=== PATIENT | male | born 1960 | race Caucasian/White ===

== ENCOUNTER 2016-10-26 06:05 | Day surgery (SDC) | payer OTHER ==
--- NOTE | 2016-10-19 09:59 | HP ---
PREOPERATIVE HISTORY AND PHYSICAL: DATE OF ADMISSION: 10/26/16 - [facility] PROVIDER: Abdon Saldivar MD CHIEF COMPLAINT: Right foot pain. HISTORY OF PRESENT ILLNESS: Mr. Cyr is a 56-year-old gentleman who has been followed by Dr. Saldivar for progressively worsening pain at the right first MTP joint. He states that he has had significant stiffness that has gotten worse over several years. 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 He is interested in surgical intervention at this point for correction of the problem. PAST MEDICAL HISTORY: 1. Type 2 diabetes. 2. Hypertension. 3. History of alcohol abuse. PAST SURGICAL HISTORY: Hernia repair. He reports no complication with anesthesia with those procedures. CURRENT MEDICATIONS: 1. Metformin HCL 500 mg p.o. daily. 2. Amlodipine/benazepril hydrochloride 5/20 mg p.o. daily. 3. Aspirin 325 mg one p.o. daily. 4. Zinc 25 mg one p.o. daily. ALLERGIES: LATEX, but no known drug allergies. FAMILY HISTORY: Positive for diabetes, heart disease, and high blood pressure, and stroke. SOCIAL HISTORY: The patient lives alone. 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 He quit smoking 27 years ago. He also quit drinking about 30 years ago. He exercises occasionally. REVIEW OF SYSTEMS: Constitutional: Negative for fevers, chills, night sweats, or recent hospitalization. Eyes: Negative for blurred vision or double vision. Cardiovascular: Positive for heart palpitations and history of a heart murmur. Negative for any chest pain. Respiratory: Negative for shortness of breath or chronic cough. Gastrointestinal: Negative for nausea, vomiting, diarrhea, or constipation. Genitourinary: Negative for nighttime urination or frequency of urination, or urinary tract infection. Musculoskeletal: Negative for recent fracture or chronic back pain. Neurologic: Negative for neuropathy , weakness, dizziness, or lightheadedness. Skin: Negative for rashes, lesions , or lumps. Hematology: Negative for easy bleeding or bruising. Endocrine: Negative for weight loss, weight gain, or fatigue. Allergic: Negative for seasonal allergies or hay fever. Psychiatric: Negative for depression or anxiety. PHYSICAL EXAMINATION GENERAL: He is a well-developed, well-nourished, pleasant male, in no acute distress at rest. He is alert and oriented x3 with appropriate mood and affect. VITAL SIGNS: The patient is 5 feet 8 inches, 190 pounds, blood pressure 130/82 , pulse 68, respirations 16. HEENT: Normocephalic/atraumatic. Hearing and vision are grossly intact. NECK: Trachea is midline. RESPIRATORY: Lungs are clear to auscultation bilaterally. No wheezes, rales, or rhonchi. CARDIOVASCULAR: Regular rate and rhythm. He has a 3/6 holosystolic murmur heard at the apex. Normal S1,S2. ABDOMEN: Soft, nondistended, nontender with normoactive bowel sounds. EXTREMITIES: Exam of the right lower extremity, skin is intact without abrasions or open wounds. There is no edema or ecchymosis. He has some palpable osteophyte formation over the dorsal aspect of the first MTP joint. He has very limited range of motion of the MTP joint as well. He had pain with passive range of motion. Sensation to light touch is intact. He has 2+ dorsalis pedis pulse. 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 IMPRESSION: Right foot hallux rigidus. PLAN: The patient is to undergo right foot first MTP joint fusion by Dr. Saldivar on 10/26/16. The risks, benefits, and postoperative course were discussed with the patient at length and he would like to proceed. A small prescription for oxycodone was sent to his pharmacy for postoperative pain. All of his questions were answered to his full satisfaction. He has understanding to call if he develops any problems or concerns. We will otherwise follow up with the patient in the postoperative phase. SHAGUFTA TAYLOR [id number]/[facility] #: [id number] RACHEL
[~2016-10-26 06:05] MED LIST: Buffered Lidocaine 1% SYR 3ML* 3 ML/SYR SYRINGE INTRADERM ONE; Dexamethasone IV* 4 MG/ML 1 ML (4 MG) IV SLOW PU ONE; Dexamethasone IV* 4 MG/ML 1 ML (4 MG) ONE; Famotidine IV* 10 MG/ML 2 ML (20 mg) IV ONE; Famotidine IV* 10 MG/ML 2 ML (20 mg) ONE; ceFAZolin 2 GM PREMIX (*) 2 GM/50 ML BAG IVPB ONE
[2016-10-26] MEDS ORDERED: HYDROmorphone INJ* 1 MG/ML CARPUJECT SYRINGE ONE (06:50)
[2016-10-26] MEDS ORDERED: fentaNYL* 50 MCG/ML 2 ML VIAL (100 MCG VIAL) ONE ×2 (06:51→08:36)
[2016-10-26] MEDS ORDERED: Lidocaine 2% PF * 5 ML VIAL ONE (06:54)
[2016-10-26] MEDS ORDERED: Propofol* 10 MG/ML 20 ML BTL IV PUSH ONE (06:54)
[2016-10-26] MEDS ORDERED: Midazolam* 1 MG/ML 2 ML VIAL (2 MG) ONE (06:54)
[2016-10-26] MEDS ORDERED: Ondansetron INJ* 2 MG/ML VIAL ONE (06:54)
[2016-10-26] MEDS ORDERED: Ketorolac INJ* 30 MG/ML 1 ML VIAL ONE (06:54)
[2016-10-26] MEDS ORDERED: Bupivacaine 0.5% SDV PF* 30 ML VIAL ONE ×2 (07:15→07:17)
[2016-10-26] MEDS ORDERED: Lidocaine 2% PF* 10 ML AMP ONE (07:15)
[2016-10-26] MEDS ORDERED: Dexmedetomidine* 200 MCG/2 ML 2 ML VIAL ONE (08:08)
[2016-10-26] MEDS ORDERED: PROCHLORPERAZINE INJ 5 MG/ML 2 ML VIAL IV PRN (08:44)
[2016-10-26] MEDS ORDERED: fentaNYL* 50 MCG/ML 2 ML VIAL (100 MCG VIAL) IV PRN (08:44)
[2016-10-26] MEDS ORDERED: DiMENhydriNATE IV* 50 MG/ML VIAL IV PUSH PRN (08:44)
[2016-10-26] MEDS ORDERED: Ondansetron INJ* 2 MG/ML VIAL IV PRN (08:44)
[2016-10-26] MEDS ORDERED: Scopolamine 1.5 mg* PATCH TRANSDERM PRN (08:44)
[2016-10-26 09:36] VITALS: BP 121/68
--- NOTE | 2016-10-26 20:58 | RAD ---
INDICATION: Surgical fusion of the first metatarsal-phalangeal joint. COMPARISON: Comparison is made with a prior x-ray study of the right foot from March 13, 2016. TECHNIQUE: 2.1 seconds of intermittent fluoroscopic guidance were provided and 2 spot films of the right foot centered on the first metatarsal-phalangeal joint were obtained in the operating room. FINDINGS: The films demonstrate a surgical fusion of the first metatarsal-phalangeal joint. There is a metallic plate dorsal to the distal first metatarsal and proximal phalanx transfixed with multiple screws. There is also a surgical screw spanning the metatarsal-phalangeal joint. IMPRESSION: INTRAOPERATIVE CONTROL FILMS. CPT II Codes: 6045F
--- NOTE | 2016-10-27 06:10 | OP ---
DATE OF OPERATION: 10/26/16 - [facility] DATE OF : 64 SURGEON: Abdon Saldivar MD REGULATORY MANAGER: Kandis Man PA-C ANESTHESIOLOGIST: Jakub Elizalde MD ANESTHESIA: General PRE-OP DIAGNOSIS: Right hallux rigidus arthritis. POST-OP DIAGNOSIS: Right hallux rigidus arthritis. OPERATIVE PROCEDURE: Right first MTP joint fusion. DESCRIPTION OF PROCEDURE: The patient was taken to the operating room where longitudinal incision was made over the dorsum of the first MTP joint. We reflected the capsule to allow visualization of the dorsal aspect of the joint. Rongeur and microsagittal saw were used to remove the large periarticular osteophytes. We prepared the joint itself for fusion with a 2.45 power jordy. We then put the toe in a neutral position and pinned it obliquely with a 34 mm _ partially threaded cannulated screw and then fashioned a Y rigid plate for the dorsum of the metatarsophalangeal joint. We then irrigated thoroughly closing the capsule and nylon for the skin and a compression dressing applied. [id number]/[facility] #: [id number] MTDD
[2016-10-29] MEDS ORDERED: Scopolamine PATCH Remove* 1 NOTE MISC PATCH OFF ONE (08:45)
== END 2016-10-26 10:10 | disposition home or self-care (01) ==
LOC: OR 06:05
PROVIDERS: ATTEND Orthopaedic Surgery
DX: M20.21 Hallux rigidus, right foot (principal); M19.071 Primary osteoarthritis, right ankle and foot; E11.9 Type 2 diabetes mellitus without complications; Z79.84 Long term (current) use of oral hypoglycemic drugs; I10 Essential (primary) hypertension; Z87.891 Personal history of nicotine dependence; M19.90 Unspecified osteoarthritis, unspecified site; F41.9 Anxiety disorder, unspecified; Z87.898 Personal history of other specified conditions; Z79.82 Long term (current) use of aspirin
CPT/HCPCS: 76000; C1713; C1776; J0690; J1100; J1170; J1885; J2001; J2250; J2405; J2704; J3010

== ENCOUNTER 2019-02-28 11:48 | Emergency (ER) | payer OTHER ==
[2019-02-28 14:07] LABS: Urine Appearance Cloudy; Urine Bacteria Absent (Absent); Urine Bilirubin Negative (Negative); Urine Blood 1+ (Negative); Urine Color Yellow; Urine Glucose Negative (Negative); Urine Ketones 1+ (Negative); Urine Nitrite Negative (Negative); Urine Protein Negative (Negative); Urine Red Blood Cell 2+(6-10/hpf) (Absent); Urine Specific Gravity 1.026 (1.010-1.030); Urine Urobilinogen Negative (Negative); Urine White Blood Cell 1+(6-10/hpf) (Absent)
[2019-02-28] MEDS ORDERED: Sulfamethox/Trimethoprim DS 800/160* TAB PO ONE (14:38)
--- NOTE | 2019-02-28 14:38 | ED ---
GI/ HPI - HPI Summary HPI Summary: 59-year-old male presents with left groin pain for a day. He states he is not currently having the pain. He states that it radiates into his testicle. Denies any masses. He states that the pain has resolved. He denies any fevers. No dysuria. He admits to urgency and frequency. He states that his PSA was elevated and is waiting to see urology. denies any penile discharge. no diarrhea or constipation. no nausea or vomiting. - History of Current Complaint Chief Complaint: EDUrogenitalProblems Time Seen by Provider: 02/28/19 13:26 Stated Complaint: TESTICULAR TORSION PER PT Pain Intensity: 2 - Allergy/Home Medications Allergies/Adverse Reactions: Allergies Allergy/AdvReac Type Severity Reaction Status Date / Time Pasco And Derivatives Allergy Rash And Verified 02/28/19 14:26 Itching latex AdvReac Rash And Verified 02/28/19 14:26 Itching PMH/Surg Hx/FS Hx/Imm Hx Endocrine/Hematology History: Reports: Hx Diabetes - ON PO MEDS & WATCHES DIET Cardiovascular History: Reports: Hx Hypertension - ON DAILY MEDS, STATES WELL CONTROLLED Sensory History: Reports: Hx Contacts or Glasses - GLASSES Comment Only: 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 [facility] Hx Anesthesia Reactions: No Infectious Disease History: No Infectious Disease History: Denies: Traveled Outside the [place] in Last 30 Days - Family History Known Family History: Positive: Non-Contributory - Social History Alcohol Use: None Alcohol Amount: RECOVERING ALCOHOLIC 20 YRS SOBER Substance Use Type: Reports: None Smoking Status (MU): Former Smoker Type: Cigarettes Amount Used/How Often: 1PPD Length of Time of Smoking/Using Tobacco: 16 YRS Have You Smoked in the Last Year: No Review of Systems Negative: Fever Negative: Chest Pain Negative: Shortness Of Breath Positive: Abdominal Pain All Other Systems Reviewed And Are Negative: Yes Physical Exam Triage Information Reviewed: Yes Vital Signs On Initial Exam: Initial Vitals Temp Pulse Resp BP Pulse Ox 99.2 F 84 16 150/95 96 02/28/19 11:57 02/28/19 11:57 02/28/19 11:57 02/28/19 11:57 02/28/19 11:57 Vital Signs Reviewed: Yes Appearance: Positive: Well-Appearing Skin: Positive: Warm, Dry Head/Face: Positive: Normal Head/Face Inspection Eyes: Positive: Normal, Conjunctiva Clear ENT: Positive: Pharynx normal Respiratory/Lung Sounds: Positive: Clear to Auscultation, Breath Sounds Present Cardiovascular: Positive: Normal, RRR Abdomen Description: Positive: Nontender, Soft, Other: - no hernia felt. Negative: CVA Tenderness (R), CVA Tenderness (L) Bowel Sounds: Positive: Present Musculoskeletal: Positive: Normal Neurological: Positive: Normal Psychiatric: Positive: Normal Diagnostics - Vital Signs Vital Signs Temp Pulse Resp BP Pulse Ox 02/28/19 11:57 99.2 F 84 16 150/95 96 - Laboratory Lab Results: Lab Results 02/28/19 Range/Units 13:15 Urine Color Yellow Urine Appearance Cloudy Urine pH 5.0 (5-9) Ur Specific T[place]ill 1.026 (1.010-1.030) Urine Protein Negative (Negative) Urine Ketones 1+ A (Negative) Urine Blood 1+ A (Negative) Urine Nitrate Negative (Negative) Urine Bilirubin Negative (Negative) Urine Urobilinogen Negative (Negative) Ur Leukocyte Esterase Negative (Negative) Urine WBC (Auto) 1+(6-10/hpf) A (Absent) Urine RBC (Auto) 2+(6-10/hpf) A (Absent) Urine Bacteria Absent (Absent) Urine Glucose Negative (Negative) Lab Statement: Any lab studies that have been ordered have been reviewed, and results considered in the medical decision making process. - Ultrasound No standard instances Ultrasound Interpretation Completed By: Radiologist Summary of Ultrasound Findings: IMPRESSION: No intratesticular masses are noted with normal flow in both testis. Small. hydroceles are noted bilaterally. Left testicular appendage is unremarkable. GIGU Course/Dx - Course Course Of Treatment: 59-year-old male presents with left groin pain for a day. He states he is not currently having the pain. He states that it radiates into his testicle. Denies any masses. He states that the pain has resolved. He denies any fevers. No dysuria. He admits to urgency and frequency. He states that his PSA was elevated and is waiting to see urology. denies any penile discharge. no diarrhea or constipation. no nausea or vomiting. On exam nondistended. Urine shows potential UTI so we'll treat with Bactrim. Testicular ultrasound is normal. Told to keep follow-up with urology. Patient understands agrees plan. - Diagnoses Differential Diagnoses - Male: Pyelonephritis, Testicular Torsion, Urinary Tract Infection Provider Diagnoses: UTI (urinary tract infection) Discharge - Sign-Out/Discharge Documenting (check all that apply): Patient Departure Patient Received Moderate/Deep Sedation with Procedure: No - Discharge Plan Condition: Good Disposition: HOME Prescriptions: Sulfamethox/Trimethoprim DS* [Bactrim DS 800/160 TAB*] 1 tab PO BID #13 tab Patient Education Materials: Urinary Tract Infection in Men (ED) Referrals: Jagdeep Zavala MD [Primary Care Provider] - Additional Instructions: Take bactrim twice a day for 7days, first dose given in ED Drink plenty of fluids take tyenlol or ibuprofen as needed for pain every 6 hours Follow up with urology as scheduled Return to ED if develop any fever, worsening flank pain, or any new or worsening symptoms - Billing Disposition and Condition Condition: GOOD Disposition: Home
[2019-02-28 14:54] VITALS: BP 141/74
== END 2019-02-28 14:53 | disposition home or self-care (01) ==
LOC: ED 11:48
DX: N39.0 Urinary tract infection, site not specified (principal); E11.9 Type 2 diabetes mellitus without complications; I10 Essential (primary) hypertension; Z79.84 Long term (current) use of oral hypoglycemic drugs; Z79.899 Other long term (current) drug therapy; Z91.040 Latex allergy status; Z87.891 Personal history of nicotine dependence
CPT/HCPCS: 76870; 81003; 81015; 87086; 99282; A9270-GY